=== PATIENT | male | born 1960 | race Caucasian/White ===

== ENCOUNTER 2022-12-27 00:17 | Emergency (ER) | payer OTHER ==
--- NOTE | 2022-12-27 00:28 | NUR ---
PATIENT ABSENT IN THE WAITING ROOM. TRIAGE NOT DONE.
--- NOTE | 2022-12-27 00:30 | NUR ---
PER [facility], PATIENT DOES NOT WANT TO BE SEEN BY THE MD DUE TO INSURANCE. PATIENT LEFT THE ER WITHOUT BEING TRIAGED AND SEEN BY MD.
== END 2022-12-27 00:34 | disposition left against medical advice (07) ==
LOC: ER 00:24
DX: Z53.21 Procedure and treatment not carried out due to patient leaving prior to being seen by health care provider (principal)